=== PATIENT | female | born 1995 | race Caucasian/White ===

== ENCOUNTER 2016-10-15 22:40 | Emergency (ER) | payer OTHER ==
[~2016-10-15] VITALS: Ht 165.1 cm; Wt 54.2 kg
[2016-10-15 22:56] VITALS: TEMP 36.7; Ht 165.1 cm; Wt 54.2 kg
[2016-10-15] MEDS ORDERED: SODIUM CHLORIDE 0.9% 1000ML 1,000 ML IV ONE (23:30)
[2016-10-15 23:50] LABS: BASO % 0.7 %; BASO ABS # 0.04 K/uL (0-0.2); COMPLETE YES; EOS % 0.5 %; IG% 0.2 %; LYMPH % 45.6 %; LYMPH ABS # 2.59 K/uL (1.2-3.4); MEAN CELL VOLUME 95.2 fL (80-100); MEAN CORPUSCULAR HEMOGLOBIN 34.9 pg (25-34); MEAN CORPUSCULAR HGB CONC 36.7 g/dl (32-36); MEAN PLATELET VOLUME 9.5 fL (7.4-10.4); MONO % 5.3 %; NEUT % 47.7 %; PLATELET COUNT 282 K/uL (130-400); RED BLOOD COUNT 4.41 M/uL (4.2-5.4); WHITE BLOOD COUNT 5.68 K/uL (4.8-10.8)
[2016-10-16 00:01] LABS: INR 1.1 (0.9-1.1); PARTIAL THROMBOPLASTIN RATIO 0.9; PROTHROMBIN TIME (PATIENT) 11.4 SECONDS (9.0-12.0)
[2016-10-16 00:08] LABS: PREG INTERNAL NEGATIVE QC NEG CLEAR BACKGROUND; PREG INTERNAL POSITIVE QC POS CONTROL LINE
[2016-10-16 00:10] LABS: BUN/CREATININE RATIO 11.7 (10-20); CALCIUM 8.5 mg/dl (8.5-10.1); CREATININE 0.74 mg/dl (0.60-1.20); MAGNESIUM 2.3 mg/dl (1.8-2.4); POTASSIUM 3.4 mmol/L (3.5-5.1)
[2016-10-16 00:21] LABS: ALB/GLOB RATIO 1.2 (0.9-2); THYROID STIMULATING HORMONE 4.93 uIu/ml (0.300-4.500)
[2016-10-16] MEDS ORDERED: LORAZEPAM 2 MG/ML 1 ML VIAL IV STA (00:29)
[2016-10-16] MEDS ORDERED: LORAZEPAM 2 MG/ML 1 ML VIAL ONE (00:29)
[2016-10-16] MEDS ORDERED: HALOPERIDOL LACTATE 5 MG/ML 1 ML VIAL ONE (00:34)
[2016-10-16] MEDS ORDERED: LORAZEPAM 2 MG/ML 1 ML VIAL IM STA (00:34)
[2016-10-16] MEDS ORDERED: HALOPERIDOL LACTATE 5 MG/ML 1 ML VIAL IM STA (00:34)
--- NOTE | 2016-10-16 01:20 | EMERGENCY ROOM VISIT NOTE ---
History First contact with patient: 23:08 Chief Complaint: FALL Stated Complaint: SEIZURE History of Present Illness The patient is a 21 year old female who presents to the Emergency Room following a syncopal episode with head injury. The patient was at a local restaurant having dinner this evening. She finished her meal, she stood, lost consciousness, fell, and hit her head. The patient was with loss of consciousness for 10-15 seconds before coming to. The patient is accompanied by friends who provided much of the history. Evidently the patient has been drinking alcohol tonight. The patient does not have reported chronic medical disease, however she is unable to answer questions herself. The patient does not have other complaints. She does smell of alcohol. Review of Systems More than 10 systems were reviewed and otherwise negative with the exception of history of present illness. Past Medical/Surgical History No chronic medical disease Family History No pertinent family history Social History Smoking Status: Unknown if Ever Smoked Occupation Status: [id number] student Current/Historical Medications No Active Prescriptions or Reported Meds Allergies Coded Allergies: No Known Allergies (Unverified , 10/15/16) Physical Exam Vital Signs Date Time Temp Pulse Resp B/P Pulse Ox O2 Delivery O2 Flow Rate FiO2 10/15/16 22:56 36.7 89 16 128/84 99 Room Air 10/15/16 22:51 94 Physical Exam VITALS: Vitals are noted on the nurse's note and reviewed by myself. Vital signs stable. GENERAL: White female who is slurring her speech and not cooperative. She smells of alcohol. She is not answering questions appropriately. HEAD: Normocephalic atraumatic. EARS: External ear normal. External auditory canals clear, tympanic membranes pearly lopez without erythema or effusion bilaterally. No hemotympanum EYES: Pupils equal round and reactive to light and accommodation. Conjunctivae without injection, sclerae without icterus. Extraocular movements intact. No hyphema NOSE: Patent, turbinates without inflammation or discharge. No epistaxis MOUTH: Mucous membranes moist. Tonsils are not enlarged. Pharynx without erythema, blood, or exudate. Uvula midline. Airway patent. NECK: Supple without nuchal rigidity. No lymphadenopathy. No thyromegaly. Cervical spine is nontender. HEART: Regular rate and rhythm without murmurs gallops or rubs. LUNGS: Clear to auscultation bilaterally without wheezes, rales or rhonchi. No retractions or accessory muscle use. ABDOMEN: Positive normal bowel sounds x 4. Soft, nontender, without masses or organomegaly. No guarding or rebound tenderness. MUSCULOSKELETAL: No muscle atrophy, erythema, or edema noted. Full range of motion without joint tenderness in all extremities. NEURO: Patient was not alert or oriented. GCS 12 ([id number]) SKIN: The skin was without rashes, erythema, edema, or bruising. Capillary reflex less than 2 seconds. Medical Decision & Procedures Laboratory Results 10/15/16 23:36 Red Blood Count 4.41, Mean Corpuscular Volume 95.2, Mean Corpuscular Hemoglobin 34.9, Mean Corpuscular Hemoglobin Concent 36.7, Mean Platelet Volume 9.5, Neutrophils (%) (Auto) 47.7, Lymphocytes (%) (Auto) 45.6, Monocytes (%) (Auto) 5.3, Eosinophils (%) (Auto) 0.5, Basophils (%) (Auto) 0.7, Neutrophils # (Auto) 2.71, Lymphocytes # (Auto) 2.59, Monocytes # (Auto) 0.30, Eosinophils # (Auto) 0.03, Basophils # (Auto) 0.04 10/15/16 23:36 Test 10/15/16 23:36 10/15/16 23:44 White Blood Count 5.68 K/uL (4.8-10.8) Red Blood Count 4.41 M/uL (4.2-5.4) Hemoglobin 15.4 g/dL (12.0-16.0) Hematocrit 42.0 % (37-47) Mean Corpuscular Volume 95.2 fL (80-100) Mean Corpuscular Hemoglobin 34.9 pg (25-34) Mean Corpuscular Hemoglobin Concent 36.7 g/dl (32-36) Platelet Count 282 K/uL (130-400) Mean Platelet Volume 9.5 fL (7.4-10.4) Neutrophils (%) (Auto) 47.7 % Lymphocytes (%) (Auto) 45.6 % Monocytes (%) (Auto) 5.3 % Eosinophils (%) (Auto) 0.5 % Basophils (%) (Auto) 0.7 % Neutrophils # (Auto) 2.71 K/uL (1.4-6.5) Lymphocytes # (Auto) 2.59 K/uL (1.2-3.4) Monocytes # (Auto) 0.30 K/uL (0.11-0.59) Eosinophils # (Auto) 0.03 K/uL (0-0.5) Basophils # (Auto) 0.04 K/uL (0-0.2) RDW Standard Deviation 44.2 fL (36.4-46.3) RDW Coefficient of Variation 12.8 % (11.5-14.5) Immature Granulocyte % (Auto) 0.2 % Immature Granulocyte # (Auto) 0.01 K/uL (0.00-0.02) Prothrombin Time 11.4 SECONDS (9.0-12.0) Prothromb Time International Ratio 1.1 (0.9-1.1) Activated Partial Thromboplast Time 23.3 SECONDS (21.0-31.0) Partial Thromboplastin Ratio 0.9 Anion Gap 14.0 mmol/L (3-11) Est Creatinine Clear Calc Drug Dose 103.8 ml/min Estimated GFR () 135.2 Estimated GFR (Non- 116.6 BUN/Creatinine Ratio 11.7 (10-20) Calcium Level 8.5 mg/dl (8.5-10.1) Magnesium Level 2.3 mg/dl (1.8-2.4) Total Bilirubin 0.3 mg/dl (0.2-1) Aspartate Amino Transf (AST/SGOT) 28 U/L (15-37) Alanine Aminotransferase (ALT/SGPT) 29 U/L (12-78) Alkaline Phosphatase 59 U/L (45-117) Total Protein 8.4 gm/dl (6.4-8.2) Albumin 4.5 gm/dl (3.4-5.0) Globulin 3.9 gm/dl (2.5-4.0) Albumin/Globulin Ratio 1.2 (0.9-2) Lipase 104 U/L (73-393) Thyroid Stimulating Hormone (TSH) 4.930 uIu/ml (0.300-4.500) Human Chorionic Gonadotropin, Qual NEG (NEG) Ethyl Alcohol mg/dL 351.0 mg/dl (0-3) Bedside Troponin I 0.000 ng/ml (0-0.045) Medications Administered Medications (Trade) Dose Ordered Sig/Anali Route Start Time Stop Time Status Last Admin Dose Admin Sodium Chloride (Nss 1000ml) 1,000 ml @ 999 mls/hr Q1H1M ONCE IV 10/15/16 23:30 10/16/16 00:30 DC 10/15/16 23:35 999 MLS/HR Lorazepam (Ativan Inj) 2 mg STK-MED ONCE .ROUTE 10/16/16 00:29 10/16/16 00:35 DC 10/16/16 00:29 2 MG Haloperidol Lactate (Haldol Inj) 5 mg STK-MED ONCE .ROUTE 10/16/16 00:34 10/16/16 00:36 DC 10/16/16 00:34 5 MG ED Course Physical exam and history were performed. Nursing notes and EMR were reviewed. Patient appears to have suffered a syncopal episode and head injury just prior to arrival. On examination the patient appears confused and not cooperative. She was able to remain steady long enough to establish an IV and draw labs. Because of her injuries EKG, chest x-ray, and CT scan of her head were ordered. The patient was hydrated with normal saline. The patient's blood work is as above and was reviewed. She does not have a significantly elevated white blood cell count, anemia, bandemia, or significant electrolyte imbalance. Her alcohol is notably elevated at 351. TSH and lipase are nondiagnostic. The patient became increasingly combative and aggressive throughout her ER stay. She refused CT scan and became more verbally abusive with staff. I did attempt to verbal ED escalate the patient, however she continued to refuse any further care, and ultimately ripped out her IV and attempted to leave. I have concern that her worsening aggressive nature may be the result of her injuries. The patient was felt to be an immediate harm to herself and possibly others. The patient was chemically restrained with 5 mg IM Haldol and 2 mg IM Ativan for her own safety. The patient was reevaluated multiple times following administration of Haldol and Ativan. She was able to rest much more comfortably following administration of these medications. The patient remained in a comfortable and stable position until the time of shift change. I discussed the case with PETER Delacruz, who will assume care at this time. At the time of shift change the patient's workup is essentially unremarkable outside of her alcohol level. The CT of her head is pending, and I do feel this is an essential component to her evaluation. Please see Mr. Neumann's dictation for further patient course, plan, and disposition. The chart was completed utilizing [employer] Voice Recognition Software. Grammatical errors, random word insertions, pronoun errors, and incomplete sentences are an occasional consequence of this system due to software limitations, ambient noise, and hardware issues. Any formal questions or concerns about the content, text, or information contained within the body of this dictation should be directly addressed to the provider for clarification. . Medical Decision Differential diagnosis: Etiologies such as alcohol intoxication, head injury, intracranial bleed, vasovagal event, infection, hypoglycemia, electrolyte abnormalities, cardiac sources, intracerebral event, toxicologic, neurologic, as well as others were entertained. Impression Primary Impression: Syncope and collapse Additional Impressions: Head injury Alcohol intoxication Alcohol abuse Critical Care I have personally spent greater than 30 minutes of critical care time in the direct management of this patient. This includes bedside care, interpretation of diagnostic studies, and testing, discussion with consultants, patient, and family members, and other required patient management activities. This 30 minutes is in excess of all separately billable procedures. Departure Information Prescriptions No Active Prescriptions or Reported Meds Referrals No Doctor, Assigned (PCP) Patient Instructions [facility] Problem Qualifiers
--- NOTE | 2016-10-16 06:22 | DIAGNOSTIC IMAGING REPORT ---
HEAD CT NONCONTRAST CT DOSE: 1096.46 mGy.cm HISTORY: Syncope vs fall. +etoh. head injury. TECHNIQUE: Multiaxial CT images of the head were performed without the use of intravenous contrast. Automated exposure control was utilized for this study. Comparison: None. Findings: The paranasal sinuses and mastoid air cells are clear. The calvarium and skull base are intact. The ventricles and sulci are within normal limits. There is no mass, hematoma, midline shift, or acute infarct. Mild left frontal scalp swelling. Impression: No acute intracranial abnormality. Electronically signed by: Aaron Stanley M.D. 10/16/2016 6:20 AM Dictated Date/Time: 10/16/2016 6:18 AM
--- NOTE | 2016-10-16 07:15 | DIAGNOSTIC IMAGING REPORT ---
CHEST ONE VIEW PORTABLE HISTORY: Fall vs syncope COMPARISON: None. FINDINGS: The lungs are clear. Cardiac silhouette is normal in size. No pleural effusions. No pneumothorax. IMPRESSION: No acute process. Electronically signed by: Aaron Stanley M.D. 10/16/2016 7:14 AM Dictated Date/Time: 10/16/2016 7:13 AM
[2016-10-16 07:44] VITALS: BP 105/62; PULSE 88; O2SAT 100
== END 2016-10-16 07:45 | disposition home or self-care (01) ==
LOC: C.EDC 22:42 → C.EDB 10-16 07:45
DX: R55 Syncope and collapse (principal); S09.90XA Unspecified injury of head, initial encounter; W19.XXXA Unspecified fall, initial encounter; F10.129 Alcohol abuse with intoxication, unspecified; Y90.8 Blood alcohol level of 240 mg/100 ml or more

== ENCOUNTER → 2017-05-25 | Outpatient (CLI) | payer BC ==
[2017-05-25 16:34] LABS: PROLACTIN 3.98 ng/mL
[2017-05-30 00:44] LABS: CHLAMYDIA TRACH RNA*** NOT DETECTED (NOT DETECTED); GC (NEIS GONORRHOEAE)RNA** NOT DETECTED (NOT DETECTED)
== END | disposition home or self-care (01) ==
LOC: C.LAB1850 14:08
PROVIDERS: ATTEND Physician Assistant
DX: N93.9 Abnormal uterine and vaginal bleeding, unspecified (principal)